=== PATIENT | male | born 1945 | race Hispanic/Latino ===

== ENCOUNTER 2021-03-24 10:50 | Inpatient (IN) | payer BC, MEDICARE ==
[~2021-03-24] VITALS: Ht 167.6 cm; Wt 83.5 kg
[2021-03-24] MEDS ORDERED: SODIUM CHLORIDE 0.9% 1000ML 1,000 ML IV STA (11:11)
[2021-03-24] MEDS ORDERED: ONDANSETRON HCL INJ 2MG/ML 2ML 2 MG/ML VIAL IV STA (11:11)
[2021-03-24] MEDS ORDERED: ACETAMINOPHEN 325 MG TAB PO ONE (11:15)
[2021-03-24 11:38] LABS: BASOPHILS % 0.1 % (0.0-1.0); HEMATOCRIT 42.4 % (38.2-49.6); HEMOGLOBIN 14.7 g/dL (14.0-18.0); LYMPHOCYTES # (AUTO) 0.6 (1.0-3.2); LYMPHOCYTES % 8.8 % (18.0-39.1); MEAN CORPUSCULAR HEMOGLOBIN 30.9 pg (28-32); MEAN CORPUSCULAR HGB CONC 34.7 g/dL (31-35); MEAN CORPUSCULAR VOLUME 89.1 fL (81-99); MONOCYTES # (AUTO) 0.5 (0.2-0.8); MONOCYTES % 7.4 % (4.4-11.3); PLATELET COUNT 123 x10e3/uL (140-360); RED BLOOD COUNT 4.76 x10e6/uL (4.3-5.7); RED CELL DISTRIBUTION WIDTH 13.6 % (11.7-14.4)
[2021-03-24 11:51] LABS: ALBUMIN 3.6 g/dL (3.5-5.0); ALBUMIN/GLOBULIN RATIO 0.9 (0.8-2.0); ANION GAP 14.8 mmol/L (8-16); CALCIUM 8.6 mg/dL (8.4-10.2); CREATININE, SERUM 0.95 mg/dL (0.72-1.25); MAGNESIUM 2.2 MG/DL (1.3-2.1); POTASSIUM 3.8 mmol/L (3.5-5.1)
[2021-03-24 11:58] LABS: CREATINE KINASE MB 3.5 ng/mL (0-5.0)
[2021-03-24] MEDS ORDERED: CEFTRIAXONE 1 GM in SODIUM CHLORIDE 0.9% 50ML 50 ML IV ONE (12:00)
[2021-03-24 12:10] LABS: B-TYPE NATRIURETIC PEPTIDE2 27.8 pg/mL (0-100)
[2021-03-24] MEDS: DEXAMETHASONE SOD PHOS 10 MG/1 ML VIAL IV SCH (13:53)
[2021-03-24] MEDS: SODIUM CHLORIDE 0.9% 1000ML 1,000 ML IV SCH ×2 (13:54→16:23)
[2021-03-24] MEDS ORDERED: ZOLPIDEM TARTRATE 5 MG TAB PO PRN (14:00)
[2021-03-24] MEDS ORDERED: REMDESIVIR 200MG/NS 100ML 200 MG in SODIUM CHLORIDE 0.9% 100 ML 100 ML IV ONE (15:00)
[2021-03-24] MEDS ORDERED: SODIUM CHLORIDE 0.9% 250ML 250 ML ONE (15:23)
[2021-03-24] MEDS ORDERED: ALTOPREV40 MG PO (15:35)
[2021-03-24] MEDS ORDERED: LEVOTHYROXINE112 MCG PO (15:35)
[2021-03-24] MEDS ORDERED: AMLODIPINE BESYL5 MG PO (15:35)
[2021-03-24 16:04] VITALS: BP 105/80
[2021-03-24 16:15] VITALS: BP 126/70
[2021-03-24 16:19] VITALS: BP 105/80
[2021-03-24] MEDS: ENOXAPARIN 30 MG/0.3 ML SYR SC SCH (16:19)
[2021-03-24] MEDS: ASCORBIC ACID 500 MG TAB PO SCH (16:19)
[2021-03-24 20:00] VITALS: BP 128/79
[2021-03-24 21:17] LABS: CREATINE KINASE MB 3.9 ng/mL (0-5.0)
[2021-03-24 21:23] VITALS: BP 128/79
[2021-03-25] VITALS (9 sets, daily range): BP systolic 119–162; BP diastolic 71–87
[2021-03-25 01:43] LABS: CREATINE KINASE MB 4.9 ng/mL (0-5.0)
[2021-03-25 06:57] LABS: BASOPHILS % 0.1 % (0.0-1.0); HEMOGLOBIN 13.2 g/dL (14.0-18.0); LYMPHOCYTES # (AUTO) 0.4 (1.0-3.2); LYMPHOCYTES % 5.6 % (18.0-39.1); MEAN CORPUSCULAR HEMOGLOBIN 30.4 pg (28-32); MEAN CORPUSCULAR HGB CONC 34.7 g/dL (31-35); MEAN CORPUSCULAR VOLUME 87.6 fL (81-99); MONOCYTES # (AUTO) 0.4 (0.2-0.8); MONOCYTES % 5.7 % (4.4-11.3); NEUTROPHILS # (AUTO) 6.5 (2.1-6.9); NEUTROPHILS % 87.6 % (38.7-80.0); PLATELET COUNT 123 x10e3/uL (140-360); RED BLOOD COUNT 4.34 x10e6/uL (4.3-5.7); RED CELL DISTRIBUTION WIDTH 13.3 % (11.7-14.4)
[2021-03-25 07:13] LABS: ALBUMIN 2.8 g/dL (3.5-5.0); ALBUMIN/GLOBULIN RATIO 0.8 (0.8-2.0); ANION GAP 12.5 mmol/L (8-16); CALCIUM 7.9 mg/dL (8.4-10.2); CREATININE, SERUM 0.7 mg/dL (0.72-1.25); POTASSIUM 3.5 mmol/L (3.5-5.1)
[2021-03-25 07:35] LABS: CREATINE KINASE 802 IU/L (30-200)
[2021-03-25] MEDS: ASCORBIC ACID 500 MG TAB PO SCH ×2 (09:02→17:05)
[2021-03-25] MEDS: DEXAMETHASONE SOD PHOS 10 MG/1 ML VIAL IV SCH (09:02)
[2021-03-25] MEDS: ENOXAPARIN 30 MG/0.3 ML SYR SC SCH ×2 (09:02→17:05)
[2021-03-25] MEDS: ZINC SULFATE 50 MG CAP PO SCH (09:02)
[2021-03-25] MEDS: CEFTRIAXONE 1 GM in SODIUM CHLORIDE 0.9% 50ML 50 ML IV SCH (11:49)
[2021-03-25] MEDS: REMDESIVIR 100MG/NS 100ML 100 MG in SODIUM CHLORIDE 0.9% 100 ML 100 ML IV SCH (15:36)
[2021-03-25] MEDS: BENZONATATE 100 MG CAP PO PRN (23:31)
[2021-03-26] VITALS (7 sets, daily range): BP systolic 121–148; BP diastolic 74–91
[2021-03-26] MEDS: ZINC SULFATE 50 MG CAP PO SCH (09:09)
[2021-03-26] MEDS: ENOXAPARIN 30 MG/0.3 ML SYR SC SCH ×2 (09:09→17:45)
[2021-03-26] MEDS: CEFTRIAXONE 1 GM in SODIUM CHLORIDE 0.9% 50ML 50 ML IV SCH (09:09)
[2021-03-26] MEDS: ASCORBIC ACID 500 MG TAB PO SCH ×2 (09:09→17:45)
[2021-03-26] MEDS: DEXAMETHASONE SOD PHOS 10 MG/1 ML VIAL IV SCH (09:09)
[2021-03-26] MEDS: REMDESIVIR 100MG/NS 100ML 100 MG in SODIUM CHLORIDE 0.9% 100 ML 100 ML IV SCH (15:10)
[2021-03-26] MEDS: BENZONATATE 100 MG CAP PO PRN (21:33)
[2021-03-27] VITALS (12 sets, daily range): BP systolic 110–134; BP diastolic 59–89
[2021-03-27] MEDS: ASCORBIC ACID 500 MG TAB PO SCH ×2 (08:48→17:28)
[2021-03-27] MEDS: ENOXAPARIN 30 MG/0.3 ML SYR SC SCH ×2 (08:48→20:18)
[2021-03-27] MEDS: ZINC SULFATE 50 MG CAP PO SCH (08:48)
[2021-03-27] MEDS: CEFTRIAXONE 1 GM in SODIUM CHLORIDE 0.9% 50ML 50 ML IV SCH (08:50)
[2021-03-27] MEDS: DEXAMETHASONE SOD PHOS 10 MG/1 ML VIAL IV SCH (09:00)
[2021-03-27] MEDS: REMDESIVIR 100MG/NS 100ML 100 MG in SODIUM CHLORIDE 0.9% 100 ML 100 ML IV SCH (15:07)
[2021-03-27 19:41] LABS: BASOPHILS % 0.3 % (0.0-1.0); HEMOGLOBIN 13.4 g/dL (14.0-18.0); LYMPHOCYTES # (AUTO) 0.4 (1.0-3.2); LYMPHOCYTES % 3.5 % (18.0-39.1); MEAN CORPUSCULAR HEMOGLOBIN 30.3 pg (28-32); MEAN CORPUSCULAR HGB CONC 34.4 g/dL (31-35); MEAN CORPUSCULAR VOLUME 88.2 fL (81-99); MONOCYTES # (AUTO) 0.5 (0.2-0.8); MONOCYTES % 4.4 % (4.4-11.3); NEUTROPHILS # (AUTO) 9.4 (2.1-6.9); NEUTROPHILS % 89.5 % (38.7-80.0); PLATELET COUNT 222 x10e3/uL (140-360); RED BLOOD COUNT 4.42 x10e6/uL (4.3-5.7); RED CELL DISTRIBUTION WIDTH 13.8 % (11.7-14.4)
[2021-03-27 19:54] LABS: ANION GAP 13.9 mmol/L (8-16); CALCIUM 7.8 mg/dL (8.4-10.2); CREATININE, SERUM 0.76 mg/dL (0.72-1.25); POTASSIUM 3.9 mmol/L (3.5-5.1)
[2021-03-28] VITALS (12 sets, daily range): BP systolic 18–151; BP diastolic 74–88
[2021-03-28] MEDS: ENOXAPARIN 30 MG/0.3 ML SYR SC SCH (10:45)
[2021-03-28] MEDS: CEFTRIAXONE 1 GM in SODIUM CHLORIDE 0.9% 50ML 50 ML IV SCH (10:45)
[2021-03-28] MEDS: ZINC SULFATE 50 MG CAP PO SCH (10:45)
[2021-03-28] MEDS: DEXAMETHASONE SOD PHOS 10 MG/1 ML VIAL IV SCH (10:45)
[2021-03-28] MEDS: ASCORBIC ACID 500 MG TAB PO SCH ×2 (10:45→18:00)
[2021-03-28] MEDS ORDERED: SODIUM CHLORIDE 0.9% 50ML 50 ML ONE (13:12)
[2021-03-28] MEDS ORDERED: IOPAMIDOL 370 MG/ML 200 ML INFUS..BTL INJ ONE (13:12)
[2021-03-28 15:24] LABS: BASOPHILS # (AUTO) 0.1 (0.0-0.1); BASOPHILS % 0.5 % (0.0-1.0); HEMATOCRIT 43.2 % (38.2-49.6); HEMOGLOBIN 14.9 g/dL (14.0-18.0); LYMPHOCYTES # (AUTO) 0.6 (1.0-3.2); LYMPHOCYTES % 4.4 % (18.0-39.1); MEAN CORPUSCULAR HEMOGLOBIN 30.3 pg (28-32); MEAN CORPUSCULAR HGB CONC 34.5 g/dL (31-35); MONOCYTES # (AUTO) 0.5 (0.2-0.8); MONOCYTES % 3.6 % (4.4-11.3); NEUTROPHILS # (AUTO) 11.6 (2.1-6.9); NEUTROPHILS % 87.9 % (38.7-80.0); PLATELET COUNT 263 x10e3/uL (140-360); RED BLOOD COUNT 4.91 x10e6/uL (4.3-5.7); RED CELL DISTRIBUTION WIDTH 13.9 % (11.7-14.4)
[2021-03-28] MEDS: REMDESIVIR 100MG/NS 100ML 100 MG in SODIUM CHLORIDE 0.9% 100 ML 100 ML IV SCH (15:33)
[2021-03-28 15:49] LABS: ALBUMIN 2.9 g/dL (3.5-5.0); ALBUMIN/GLOBULIN RATIO 0.8 (0.8-2.0); ANION GAP 14.1 mmol/L (8-16); CALCIUM 8.1 mg/dL (8.4-10.2); CHOL/HDL RATIO 3.8 (3.9-4.7); CREATININE, SERUM 0.78 mg/dL (0.72-1.25); POTASSIUM 4.1 mmol/L (3.5-5.1)
[2021-03-28] MEDS: ENOXAPARIN INJ 80 MG/0.8 ML SYR SC SCH (21:17)
[2021-03-29] VITALS (25 sets, daily range): BP systolic 107–140; BP diastolic 68–89
[2021-03-29 05:00] LABS: BASOPHILS # (AUTO) 0.1 (0.0-0.1); BASOPHILS % 0.4 % (0.0-1.0); HEMATOCRIT 44.7 % (38.2-49.6); HEMOGLOBIN 15.5 g/dL (14.0-18.0); LYMPHOCYTES # (AUTO) 0.9 (1.0-3.2); MEAN CORPUSCULAR HEMOGLOBIN 30.4 pg (28-32); MEAN CORPUSCULAR HGB CONC 34.7 g/dL (31-35); MEAN CORPUSCULAR VOLUME 87.6 fL (81-99); MONOCYTES # (AUTO) 0.6 (0.2-0.8); MONOCYTES % 5.2 % (4.4-11.3); NEUTROPHILS # (AUTO) 9.3 (2.1-6.9); NEUTROPHILS % 82.2 % (38.7-80.0); PLATELET COUNT 284 x10e3/uL (140-360); RED CELL DISTRIBUTION WIDTH 13.9 % (11.7-14.4)
[2021-03-29 05:26] LABS: CALCIUM 8.4 mg/dL (8.4-10.2); CREATININE, SERUM 0.8 mg/dL (0.72-1.25)
[2021-03-29] MEDS: DEXAMETHASONE SOD PHOS 10 MG/1 ML VIAL IV SCH (08:00)
[2021-03-29] MEDS: CEFTRIAXONE 1 GM in SODIUM CHLORIDE 0.9% 50ML 50 ML IV SCH (08:00)
[2021-03-29] MEDS: ASPIRIN 81 MG ENTERIC COATED PO SCH (08:00)
[2021-03-29] MEDS: METOPROLOL TARTRATE 25 MG TAB PO SCH (08:00)
[2021-03-29] MEDS: ASCORBIC ACID 500 MG TAB PO SCH ×2 (08:01→17:00)
[2021-03-29] MEDS: ENOXAPARIN INJ 80 MG/0.8 ML SYR SC SCH ×2 (08:01→21:40)
[2021-03-29] MEDS: ZINC SULFATE 50 MG CAP PO SCH (08:01)
[2021-03-30] VITALS (25 sets, daily range): BP systolic 109–138; BP diastolic 71–93
[2021-03-30 04:46] LABS: BASOPHILS % 0.3 % (0.0-1.0); HEMATOCRIT 42.7 % (38.2-49.6); HEMOGLOBIN 14.6 g/dL (14.0-18.0); LYMPHOCYTES # (AUTO) 0.6 (1.0-3.2); MEAN CORPUSCULAR HEMOGLOBIN 30.2 pg (28-32); MEAN CORPUSCULAR HGB CONC 34.2 g/dL (31-35); MEAN CORPUSCULAR VOLUME 88.2 fL (81-99); MONOCYTES # (AUTO) 0.6 (0.2-0.8); MONOCYTES % 5.5 % (4.4-11.3); NEUTROPHILS # (AUTO) 9.7 (2.1-6.9); NEUTROPHILS % 86.9 % (38.7-80.0); PLATELET COUNT 299 x10e3/uL (140-360); RED BLOOD COUNT 4.84 x10e6/uL (4.3-5.7); RED CELL DISTRIBUTION WIDTH 14.2 % (11.7-14.4)
[2021-03-30 05:15] LABS: ALBUMIN 2.7 g/dL (3.5-5.0); ALBUMIN/GLOBULIN RATIO 0.8 (0.8-2.0); ANION GAP 14.8 mmol/L (8-16); CALCIUM 8.1 mg/dL (8.4-10.2); CREATININE, SERUM 0.76 mg/dL (0.72-1.25); POTASSIUM 3.8 mmol/L (3.5-5.1)
[2021-03-30] MEDS: ZINC SULFATE 50 MG CAP PO SCH (08:22)
[2021-03-30] MEDS: ASPIRIN 81 MG ENTERIC COATED PO SCH (08:22)
[2021-03-30] MEDS: METOPROLOL TARTRATE 25 MG TAB PO SCH (08:22)
[2021-03-30] MEDS: ENOXAPARIN INJ 80 MG/0.8 ML SYR SC SCH ×2 (08:22→22:07)
[2021-03-30] MEDS: CEFTRIAXONE 1 GM in SODIUM CHLORIDE 0.9% 50ML 50 ML IV SCH (08:22)
[2021-03-30] MEDS: ASCORBIC ACID 500 MG TAB PO SCH ×2 (08:22→17:15)
[2021-03-30] MEDS: DEXAMETHASONE SOD PHOS 10 MG/1 ML VIAL IV SCH (08:22)
[2021-03-30] MEDS ORDERED: MAGNESIUM HYDROXIDE 30 ML UDC PO ONE (13:00)
[2021-03-31] VITALS (22 sets, daily range): BP systolic 100–137; BP diastolic 54–93
[2021-03-31 06:14] LABS: BASOPHILS % 0.2 % (0.0-1.0); EOSINOPHILS % 0.1 % (0.0-6.0); HEMATOCRIT 43.6 % (38.2-49.6); HEMOGLOBIN 15.1 g/dL (14.0-18.0); LYMPHOCYTES # (AUTO) 0.5 (1.0-3.2); LYMPHOCYTES % 5.2 % (18.0-39.1); MEAN CORPUSCULAR HEMOGLOBIN 30.4 pg (28-32); MEAN CORPUSCULAR HGB CONC 34.6 g/dL (31-35); MEAN CORPUSCULAR VOLUME 87.9 fL (81-99); MONOCYTES # (AUTO) 0.5 (0.2-0.8); NEUTROPHILS # (AUTO) 9.1 (2.1-6.9); PLATELET COUNT 320 x10e3/uL (140-360); RED BLOOD COUNT 4.96 x10e6/uL (4.3-5.7)
[2021-03-31 06:27] LABS: ALBUMIN 2.8 g/dL (3.5-5.0); ALBUMIN/GLOBULIN RATIO 0.9 (0.8-2.0); ANION GAP 13.7 mmol/L (8-16); CALCIUM 8.2 mg/dL (8.4-10.2); CREATININE, SERUM 0.77 mg/dL (0.72-1.25); POTASSIUM 3.7 mmol/L (3.5-5.1)
[2021-03-31] MEDS: ASPIRIN 81 MG ENTERIC COATED PO SCH (08:41)
[2021-03-31] MEDS: ENOXAPARIN INJ 80 MG/0.8 ML SYR SC SCH ×2 (08:42→20:52)
[2021-03-31] MEDS: DEXAMETHASONE SOD PHOS 10 MG/1 ML VIAL IV SCH (08:42)
[2021-03-31] MEDS: METOPROLOL TARTRATE 25 MG TAB PO SCH (08:42)
[2021-03-31] MEDS: ZINC SULFATE 50 MG CAP PO SCH (08:42)
[2021-03-31] MEDS: ASCORBIC ACID 500 MG TAB PO SCH ×2 (08:42→16:29)
[2021-03-31] MEDS: CEFTRIAXONE 1 GM in SODIUM CHLORIDE 0.9% 50ML 50 ML IV SCH (08:42)
[2021-03-31] MEDS ORDERED: METHYLPREDNISOLONE SOD SUCC 125 MG/2ML VIAL IV NR (13:45)
[2021-04-01] VITALS (26 sets, daily range): BP systolic 104–133; BP diastolic 68–96
[2021-04-01 06:14] LABS: BASOPHILS % 0.2 % (0.0-1.0); HEMATOCRIT 42.3 % (38.2-49.6); HEMOGLOBIN 14.5 g/dL (14.0-18.0); LYMPHOCYTES # (AUTO) 0.3 (1.0-3.2); LYMPHOCYTES % 3.4 % (18.0-39.1); MEAN CORPUSCULAR HEMOGLOBIN 30.3 pg (28-32); MEAN CORPUSCULAR HGB CONC 34.3 g/dL (31-35); MEAN CORPUSCULAR VOLUME 88.5 fL (81-99); MONOCYTES # (AUTO) 0.3 (0.2-0.8); MONOCYTES % 3.4 % (4.4-11.3); NEUTROPHILS # (AUTO) 8.4 (2.1-6.9); NEUTROPHILS % 91.8 % (38.7-80.0); PLATELET COUNT 332 x10e3/uL (140-360); RED BLOOD COUNT 4.78 x10e6/uL (4.3-5.7); RED CELL DISTRIBUTION WIDTH 14.1 % (11.7-14.4)
[2021-04-01 06:44] LABS: ALBUMIN 2.6 g/dL (3.5-5.0); ALBUMIN/GLOBULIN RATIO 0.8 (0.8-2.0); ANION GAP 14.9 mmol/L (8-16); CALCIUM 7.9 mg/dL (8.4-10.2); CREATININE, SERUM 0.75 mg/dL (0.72-1.25); POTASSIUM 3.9 mmol/L (3.5-5.1)
[2021-04-01] MEDS: ASCORBIC ACID 500 MG TAB PO SCH ×2 (08:24→16:45)
[2021-04-01] MEDS: ASPIRIN 81 MG ENTERIC COATED PO SCH (08:24)
[2021-04-01] MEDS: ZINC SULFATE 50 MG CAP PO SCH (08:24)
[2021-04-01] MEDS: DEXAMETHASONE 4 MG TAB PO SCH (08:24)
[2021-04-01] MEDS: CEFTRIAXONE 1 GM in SODIUM CHLORIDE 0.9% 50ML 50 ML IV SCH (08:40)
[2021-04-01] MEDS: METOPROLOL TARTRATE 25 MG TAB PO SCH (08:40)
[2021-04-01] MEDS: ENOXAPARIN INJ 80 MG/0.8 ML SYR SC SCH ×2 (08:40→21:04)
[2021-04-02] VITALS (15 sets, daily range): BP systolic 108–132; BP diastolic 70–90
[2021-04-02 04:58] LABS: BASOPHILS % 0.2 % (0.0-1.0); EOSINOPHILS % 0.3 % (0.0-6.0); HEMATOCRIT 41.8 % (38.2-49.6); HEMOGLOBIN 14.3 g/dL (14.0-18.0); LYMPHOCYTES # (AUTO) 0.6 (1.0-3.2); LYMPHOCYTES % 5.1 % (18.0-39.1); MEAN CORPUSCULAR HEMOGLOBIN 30.5 pg (28-32); MEAN CORPUSCULAR HGB CONC 34.2 g/dL (31-35); MEAN CORPUSCULAR VOLUME 89.1 fL (81-99); MONOCYTES # (AUTO) 0.4 (0.2-0.8); MONOCYTES % 3.7 % (4.4-11.3); NEUTROPHILS # (AUTO) 10.5 (2.1-6.9); NEUTROPHILS % 89.6 % (38.7-80.0); PLATELET COUNT 307 x10e3/uL (140-360); RED BLOOD COUNT 4.69 x10e6/uL (4.3-5.7); RED CELL DISTRIBUTION WIDTH 14.4 % (11.7-14.4)
[2021-04-02 05:24] LABS: ALBUMIN 2.5 g/dL (3.5-5.0); ALBUMIN/GLOBULIN RATIO 0.8 (0.8-2.0); CREATININE, SERUM 0.76 mg/dL (0.72-1.25)
[2021-04-02] MEDS: METOPROLOL TARTRATE 25 MG TAB PO SCH (08:00)
[2021-04-02] MEDS: CEFTRIAXONE 1 GM in SODIUM CHLORIDE 0.9% 50ML 50 ML IV SCH (08:00)
[2021-04-02] MEDS: ASCORBIC ACID 500 MG TAB PO SCH ×2 (08:00→16:45)
[2021-04-02] MEDS: ENOXAPARIN INJ 80 MG/0.8 ML SYR SC SCH ×2 (08:00→21:25)
[2021-04-02] MEDS: ASPIRIN 81 MG ENTERIC COATED PO SCH (08:00)
[2021-04-02] MEDS: DEXAMETHASONE 4 MG TAB PO SCH (08:00)
[2021-04-02] MEDS: ZINC SULFATE 50 MG CAP PO SCH (08:00)
[2021-04-02] MEDS ORDERED: LACTATED RINGER'S 1,000 ML ONE (09:38)
[2021-04-02] MEDS ORDERED: LACTATED RINGER'S 1,000 ML INJ ONE (10:00)
[2021-04-03] VITALS (14 sets, daily range): BP systolic 92–130; BP diastolic 60–88
[2021-04-03 05:11] LABS: BASOPHILS % 0.1 % (0.0-1.0); EOSINOPHILS # (AUTO) 0.1 (0.0-0.4); EOSINOPHILS % 0.8 % (0.0-6.0); HEMATOCRIT 42.1 % (38.2-49.6); HEMOGLOBIN 14.3 g/dL (14.0-18.0); LYMPHOCYTES # (AUTO) 0.6 (1.0-3.2); LYMPHOCYTES % 6.2 % (18.0-39.1); MEAN CORPUSCULAR HEMOGLOBIN 30.2 pg (28-32); MONOCYTES # (AUTO) 0.2 (0.2-0.8); MONOCYTES % 2.4 % (4.4-11.3); NEUTROPHILS # (AUTO) 8.2 (2.1-6.9); PLATELET COUNT 310 x10e3/uL (140-360); RED BLOOD COUNT 4.73 x10e6/uL (4.3-5.7); RED CELL DISTRIBUTION WIDTH 14.1 % (11.7-14.4)
[2021-04-03 05:30] LABS: ALBUMIN 2.5 g/dL (3.5-5.0); ALBUMIN/GLOBULIN RATIO 0.8 (0.8-2.0); ANION GAP 9.6 mmol/L (8-16); CREATININE, SERUM 0.76 mg/dL (0.72-1.25); POTASSIUM 3.6 mmol/L (3.5-5.1)
[2021-04-03] MEDS: DEXAMETHASONE 4 MG TAB PO SCH (08:39)
[2021-04-03] MEDS: CEFTRIAXONE 1 GM in SODIUM CHLORIDE 0.9% 50ML 50 ML IV SCH (08:39)
[2021-04-03] MEDS: ASPIRIN 81 MG ENTERIC COATED PO SCH (08:39)
[2021-04-03] MEDS: ZINC SULFATE 50 MG CAP PO SCH (08:44)
[2021-04-03] MEDS: METOPROLOL TARTRATE 25 MG TAB PO SCH (08:44)
[2021-04-03] MEDS: ASCORBIC ACID 500 MG TAB PO SCH ×2 (08:44→16:41)
[2021-04-03] MEDS: ENOXAPARIN INJ 80 MG/0.8 ML SYR SC SCH ×2 (09:00→21:45)
[2021-04-03] MEDS ORDERED: SODIUM CHLORIDE 0.9% 250ML 250 ML ONE (09:12)
[2021-04-04] VITALS (22 sets, daily range): BP systolic 102–132; BP diastolic 70–88
[2021-04-04 05:16] LABS: BASOPHILS % 0.2 % (0.0-1.0); EOSINOPHILS % 0.3 % (0.0-6.0); HEMATOCRIT 40.6 % (38.2-49.6); LYMPHOCYTES # (AUTO) 0.5 (1.0-3.2); LYMPHOCYTES % 4.7 % (18.0-39.1); MEAN CORPUSCULAR HEMOGLOBIN 30.4 pg (28-32); MEAN CORPUSCULAR HGB CONC 34.5 g/dL (31-35); MEAN CORPUSCULAR VOLUME 88.3 fL (81-99); MONOCYTES # (AUTO) 0.4 (0.2-0.8); MONOCYTES % 3.9 % (4.4-11.3); NEUTROPHILS # (AUTO) 10.1 (2.1-6.9); NEUTROPHILS % 89.3 % (38.7-80.0); PLATELET COUNT 294 x10e3/uL (140-360)
[2021-04-04 05:41] LABS: ALBUMIN 2.4 g/dL (3.5-5.0); ALBUMIN/GLOBULIN RATIO 0.8 (0.8-2.0); ANION GAP 11.1 mmol/L (8-16); CALCIUM 8.2 mg/dL (8.4-10.2); CREATININE, SERUM 0.7 mg/dL (0.72-1.25); POTASSIUM 4.1 mmol/L (3.5-5.1)
[2021-04-04] MEDS: ASPIRIN 81 MG ENTERIC COATED PO SCH (08:24)
[2021-04-04] MEDS: METOPROLOL TARTRATE 25 MG TAB PO SCH (08:24)
[2021-04-04] MEDS: ZINC SULFATE 50 MG CAP PO SCH (08:24)
[2021-04-04] MEDS: ASCORBIC ACID 500 MG TAB PO SCH ×2 (08:24→17:06)
[2021-04-04] MEDS: DEXAMETHASONE 4 MG TAB PO SCH (08:24)
[2021-04-04] MEDS: CEFTRIAXONE 1 GM in SODIUM CHLORIDE 0.9% 50ML 50 ML IV SCH (08:24)
[2021-04-04] MEDS: ENOXAPARIN INJ 80 MG/0.8 ML SYR SC SCH ×2 (08:24→20:25)
[2021-04-04] MEDS: BENZONATATE 100 MG CAP PO PRN (20:25)
[2021-04-05] VITALS (21 sets, daily range): BP systolic 102–148; BP diastolic 67–95
[2021-04-05 04:14] LABS: BASOPHILS % 0.3 % (0.0-1.0); HEMATOCRIT 42.2 % (38.2-49.6); HEMOGLOBIN 14.4 g/dL (14.0-18.0); LYMPHOCYTES # (AUTO) 0.5 (1.0-3.2); LYMPHOCYTES % 4.4 % (18.0-39.1); MEAN CORPUSCULAR HEMOGLOBIN 30.3 pg (28-32); MEAN CORPUSCULAR HGB CONC 34.1 g/dL (31-35); MEAN CORPUSCULAR VOLUME 88.8 fL (81-99); MONOCYTES # (AUTO) 0.4 (0.2-0.8); NEUTROPHILS # (AUTO) 10.8 (2.1-6.9); NEUTROPHILS % 90.9 % (38.7-80.0); PLATELET COUNT 299 x10e3/uL (140-360); RED BLOOD COUNT 4.75 x10e6/uL (4.3-5.7); RED CELL DISTRIBUTION WIDTH 14.1 % (11.7-14.4)
[2021-04-05 04:38] LABS: ALBUMIN 2.5 g/dL (3.5-5.0); ALBUMIN/GLOBULIN RATIO 0.8 (0.8-2.0); ANION GAP 13.8 mmol/L (8-16); CREATININE, SERUM 0.78 mg/dL (0.72-1.25); POTASSIUM 3.8 mmol/L (3.5-5.1)
[2021-04-05 06:23] LABS: INR 1.15; PARTIAL THROMBOPLASTIN TIME 37.2 seconds (23.8-35.5); PROTHROMBIN TIME 15.4 seconds (11.9-14.5)
[2021-04-05] MEDS: ASCORBIC ACID 500 MG TAB PO SCH ×2 (08:09→16:54)
[2021-04-05] MEDS: METOPROLOL TARTRATE 25 MG TAB PO SCH (08:09)
[2021-04-05] MEDS: ZINC SULFATE 50 MG CAP PO SCH (08:09)
[2021-04-05] MEDS: ASPIRIN 81 MG ENTERIC COATED PO SCH (08:09)
[2021-04-05] MEDS: DEXAMETHASONE 4 MG TAB PO SCH (08:09)
[2021-04-05] MEDS: ENOXAPARIN INJ 80 MG/0.8 ML SYR SC SCH ×2 (08:10→20:01)
[2021-04-06] VITALS (15 sets, daily range): BP systolic 106–132; BP diastolic 40–95
[2021-04-06 05:38] LABS: BASOPHILS % 0.2 % (0.0-1.0); HEMATOCRIT 42.6 % (38.2-49.6); HEMOGLOBIN 14.6 g/dL (14.0-18.0); LYMPHOCYTES # (AUTO) 0.7 (1.0-3.2); LYMPHOCYTES % 5.1 % (18.0-39.1); MEAN CORPUSCULAR HEMOGLOBIN 30.5 pg (28-32); MEAN CORPUSCULAR HGB CONC 34.3 g/dL (31-35); MEAN CORPUSCULAR VOLUME 89.1 fL (81-99); MONOCYTES # (AUTO) 0.6 (0.2-0.8); MONOCYTES % 4.3 % (4.4-11.3); NEUTROPHILS # (AUTO) 11.5 (2.1-6.9); PLATELET COUNT 311 x10e3/uL (140-360); RED BLOOD COUNT 4.78 x10e6/uL (4.3-5.7); RED CELL DISTRIBUTION WIDTH 14.2 % (11.7-14.4)
[2021-04-06 06:00] LABS: ALBUMIN 2.6 g/dL (3.5-5.0); ALBUMIN/GLOBULIN RATIO 0.8 (0.8-2.0); ANION GAP 10.1 mmol/L (8-16); CALCIUM 8.4 mg/dL (8.4-10.2); CREATININE, SERUM 0.73 mg/dL (0.72-1.25); POTASSIUM 4.1 mmol/L (3.5-5.1)
[2021-04-06] MEDS: ASPIRIN 81 MG ENTERIC COATED PO SCH (08:06)
[2021-04-06] MEDS: DEXAMETHASONE 4 MG TAB PO SCH (08:06)
[2021-04-06] MEDS: ASCORBIC ACID 500 MG TAB PO SCH ×2 (08:07→17:08)
[2021-04-06] MEDS: METOPROLOL TARTRATE 25 MG TAB PO SCH (08:07)
[2021-04-06] MEDS: ZINC SULFATE 50 MG CAP PO SCH (08:08)
[2021-04-06] MEDS: ENOXAPARIN INJ 80 MG/0.8 ML SYR SC SCH ×2 (08:08→20:42)
[2021-04-07] VITALS (9 sets, daily range): BP systolic 117–127; BP diastolic 68–89
[2021-04-07] MEDS: ASCORBIC ACID 500 MG TAB PO SCH (08:34)
[2021-04-07] MEDS: ASPIRIN 81 MG ENTERIC COATED PO SCH (08:34)
[2021-04-07] MEDS: ZINC SULFATE 50 MG CAP PO SCH (08:34)
[2021-04-07] MEDS: METOPROLOL TARTRATE 25 MG TAB PO SCH (08:34)
[2021-04-07] MEDS: ENOXAPARIN INJ 80 MG/0.8 ML SYR SC SCH (08:34)
[2021-04-07] MEDS: DEXAMETHASONE 4 MG TAB PO SCH (08:34)
== END 2021-04-07 12:06 | DRG 177 ==
LOC: ER 12:07 → ERHOLD 14:24 → MED/SURG3 14:59 → ICU 03-28 16:18
PROVIDERS: ADMIT Internal Medicine; ATTEND Internal Medicine
PROC: XW033E5 Introduction of Remdesivir Anti-infective into Peripheral Vein, Percutaneous Approach, New Technology Group 5 (ICD-10-PCS; principal; 2021-03-24)
PROC: 3E0333Z Introduction of Anti-inflammatory into Peripheral Vein, Percutaneous Approach (ICD-10-PCS; 2021-03-24)
PROC: 02HV33Z Insertion of Infusion Device into Superior Vena Cava, Percutaneous Approach (ICD-10-PCS; 2021-04-02)
PROC: B548ZZA Ultrasonography of Superior Vena Cava, Guidance (ICD-10-PCS; 2021-04-02)
DX: U07.1 COVID-19 (principal); J12.82 Pneumonia due to coronavirus disease 2019; J96.01 Acute respiratory failure with hypoxia; J18.9 Pneumonia, unspecified organism; E87.2 Acidosis; I10 Essential (primary) hypertension; E03.9 Hypothyroidism, unspecified; E78.5 Hyperlipidemia, unspecified; Z87.891 Personal history of nicotine dependence; E86.0 Dehydration; D69.6 Thrombocytopenia, unspecified; E11.9 Type 2 diabetes mellitus without complications
CPT/HCPCS: 36415; 36569; 71045; 71260; 80048; 80053; 80061; 82550; 82553; 82728; 82948; 83605; 83735; 83880; 84484; 85025; 85610; 85730; 86140; 87040; 93005; 93306; 99251; 99284; J0456; J0696; J1100; J1650; J2930; J7030; J7050; J7121; Q9967; U0002